=== PATIENT | male | born 1980 | race Caucasian/White ===

== ENCOUNTER 2020-04-10 21:10 | Emergency (ER) | payer SELFPAY ==
[~2020-04-10] VITALS: Ht 180.3 cm; Wt 89.8 kg
[2020-04-10] MEDS ORDERED: KETOROLAC 30 MG/1 ML IVPush ONE (21:30)
[2020-04-10] MEDS ORDERED: SODIUM CHLORIDE FLUSH 10ML SYR IVF ONE (21:30)
[2020-04-10] MEDS ORDERED: ONDANSETRON 2MG/ML, 2ML IVPush ONE (21:30)
[2020-04-10] MEDS ORDERED: HYDROmorphone 1 MG/ML, 1ML INJ IVPush PRN (21:30)
[2020-04-10] MEDS ORDERED: HYDROmorphone 1 MG/ML, 1ML INJ ONE (21:58)
[2020-04-10] MEDS ORDERED: ONDANSETRON ODT 4 MG ONE (21:58)
[2020-04-10] MEDS ORDERED: KETOROLAC 60 MG/2 ML ONE (21:58)
[2020-04-10] MEDS ORDERED: ONDANSETRON ODT 4 MG PO ONE (22:00)
[2020-04-10] MEDS ORDERED: KETOROLAC 30 MG/1 ML IM ONE (22:00)
[2020-04-10] MEDS ORDERED: HYDROmorphone/PF 4 MG/ML, 1ML IM ONE (22:00)
[2020-04-10 23:51] VITALS: BP 122/75
== END 2020-04-10 23:53 | disposition home or self-care (01) ==
LOC: ED 22:15
DX: S52.611A Displaced fracture of right ulna styloid process, initial encounter for closed fracture (principal); S52.571A Other intraarticular fracture of lower end of right radius, initial encounter for closed fracture; X58.XXXA Exposure to other specified factors, initial encounter; Y93.89 Activity, other specified; Y92.098 Other place in other non-institutional residence as the place of occurrence of the external cause; Y99.8 Other external cause status
CPT/HCPCS: 29125; 96372; 96374; 99284; J1170; J1885; Q0162